=== PATIENT | female | born 1975 | race Hispanic/Latino ===

== ENCOUNTER → 2025-01-10 | Outpatient (CLI) | payer OTHER ==
--- NOTE | 2025-01-11 05:26 | HMCIMG ---
EXAM: CR Cervical spine, 3 views. CLINICAL HISTORY: Arthritis. COMPARISON: None provided. FINDINGS: Straightening of the expected cervical lordosis reflects paraspinal muscle spasm. Mild spondylosis is evident. Mild degenerative disc space narrowing at C4-C5. The remaining disc spaces are maintained. Normal vertebral body heights. No acute fracture. The prevertebral soft tissues are within normal limits. The included lungs are clear. Surgical clips in the neck region. IMPRESSION: No acute bony abnormality is evident. Straightening of the expected cervical lordosis reflects paraspinal muscle spasm. Mild spondylosis is evident. Mild degenerative disc space narrowing at C4-C5. /Mcwilliams
== END | disposition home or self-care (01) ==
LOC: RAH 15:08
PROVIDERS: ATTEND Internal Medicine
DX: M47.812 Spondylosis without myelopathy or radiculopathy, cervical region (principal); M48.02 Spinal stenosis, cervical region; M62.838 Other muscle spasm; M40.50 Lordosis, unspecified, site unspecified; M62.830 Muscle spasm of back
CPT/HCPCS: 72040